=== PATIENT | male | born 1950 | race African-American/Black ===

== ENCOUNTER 2018-11-27 15:37 | Emergency (ER) | payer OTHER ==
[2018-11-27 15:48] VITALS: BP 137/83; PULSE 86; TEMP 98.7; BMI 31.1
--- NOTE | 2018-11-27 15:48 | PDOC ---
Rapid Medical Evaluation Chief Complaint: Pain Time Seen by Provider: 11/27/18 15:46 Medical Evaluation: Allergies Allergy/AdvReac Type Severity Reaction Status Date / Time No Known Allergies Allergy Verified 03/29/16 07:41 11/27/18 15:46 This patient had a brief in-person evaluation by me. cc: left groin pain x 2 days patient reports twisting bad 2 days ago and since then with inner left thigh and groin pain Denies numbness or tingling in leg PE: NAD even unlabored breathing Orders: none This patient will proceed to Ed for further evaluation Discharge Disposition - Diagnosis Groin pain, chronic, left, Groin pain - Referrals - Patient Instructions - Post Discharge Activity
[2018-11-27] MEDS ORDERED: NAPROXEN 500 MG TABLET (FP) PO ONE (16:45)
[2018-11-27] MEDS ORDERED: METHOCARBAMOL 500 MG TABLET PO ONE (16:45)
--- NOTE | 2018-11-27 16:51 | PDOC ---
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 Patient reported taking Tylenol 3 days ago for pain but has not taken anything else. Denies testicular swelling, pain or discharge. Denies hematuria. Denies dysuria. Denies any other symptoms Timing/Duration: other (3 days) Past History - Past Medical History Allergies/Adverse Reactions: Allergies Allergy/AdvReac Type Severity Reaction Status Date / Time No Known Allergies Allergy Verified 11/27/18 15:48 Home Medications: Ambulatory Orders No Home Medications 0 dose .ROUTE UTDICT 03/24/13 Chlordiazepoxide [Librium -] 10 mg PO TID PRN #21 capsule MDD 3 03/29/16 Naproxen 500 mg PO BID PRN #20 tablet 11/27/18 COPD: No HTN: Yes Liver Disease: Yes (HEP C) - Suicide/Smoking/Psychosocial Hx Smoking Status: No Smoking History: Former smoker Have you smoked in the past 12 months: No Number of Cigarettes Smoked Daily: 0 Information on smoking cessation initiated: No Hx Alcohol Use: No Drug/Substance Use Hx: No Review of Systems - Review of Systems Able to Perform ROS?: Yes Is the patient limited Korean proficient: No HEENTM: No: Symptoms Reported Respiratory: No: Symptoms reported Cardiac (ROS): No: Symptoms Reported ABD/GI: No: Nausea, Vomiting : Yes: Symptoms Reported, See HPI, Pain (left groin and inner thigh). No: Dysuria, Discharge, Hematuria, Testicular Mass, Testicular Swelling, Testicular Pain Musculoskeletal: Yes: Symptoms Reported, See HPI, Muscle Pain (left groin) All Other Systems: Reviewed and Negative *Physical Exam - Vital Signs Last Vital Signs Temp Pulse Resp BP Pulse Ox 98.7 F 86 18 137/83 97 11/27/18 15:46 11/27/18 15:46 11/27/18 15:46 11/27/18 15:46 11/27/18 15:46 - Physical Exam General Appearance: Yes: Nourished, Appropriately Dressed. No: Apparent Distress HEENT: positive: Normal ENT Inspection Neck: positive: Supple Respiratory/Chest: negative: Respiratory Distress, Accessory Muscle Use Gastrointestinal/Abdominal: positive: Normal Bowel Sounds. negative: Tender Male Genitalia: positive: normal genitalia, other (mild tenderness to left side of mons pubis and left groin area). negative: testicular tenderness, testicular mass, epididymus tender, inguinal hernia, hernia, CVAT Musculoskeletal: positive: Normal Inspection. 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 Patient reported taking Tylenol 3 days ago for pain but has not taken anything else. Denies testicular swelling, pain or discharge. Denies hematuria. Denies dysuria. Denies any other symptoms Exam significant for mild tenderness to mons pubis and in the left thigh. No testicular pain or swelling. No scrotal swelling. Patient offered to do testicular ultrasound to evaluate pain but patient feels doesn't need ultrasound and will rather try NSAIDs for his pain before coming back for ultrasound if needed. Patient symptoms likely muscle strain. Naproxen 500 mg by mouth and Robaxin 500 mg by mouth ordered for pain. Patient is stable for discharge and naproxen as needed for pain with urology follow-up as needed. *DC/Admit/Observation/Transfer Diagnosis at time of Disposition: Groin pain Qualifiers: Laterality: left Qualified Code(s): R10.32 - Left lower quadrant pain Inguinal muscle strain Qualifiers: Encounter type: initial encounter Qualified Code(s): S39.013A - Strain of muscle, fascia and tendon of pelvis, initial encounter - Discharge Dispostion Disposition: HOME Condition at time of disposition: Stable Decision to Admit order: No - Prescriptions Prescriptions: Naproxen 500 mg PO BID PRN #20 tablet PRN Reason: pain - Referrals Referrals: El-Masry,Matt S, MD [Staff Physician] - - Patient Instructions Printed Discharge Instructions: Groin Strain Additional Instructions: Take prescribed medication as needed for pain. Apply hot compress to groin area 2-3 times a needed for pain. Follow-up with referred urology if no improvement in 2 days - Post Discharge Activity
[2018-11-27] MEDS ORDERED: METHOCARBAMOL 500 MG TABLET ONE (16:55)
[2018-11-27] MEDS ORDERED: NAPROXEN 500 MG TABLET (FP) ONE (16:55)
== END 2018-11-27 17:03 | disposition home or self-care (01) ==
LOC: JERFT 15:37
DX: S39.013A Strain of muscle, fascia and tendon of pelvis, initial encounter (principal); X50.1XXA Overexertion from prolonged static or awkward postures, initial encounter; Y93.89 Activity, other specified; Y92.89 Other specified places as the place of occurrence of the external cause; Y99.8 Other external cause status; I10 Essential (primary) hypertension; B18.2 Chronic viral hepatitis C
CPT/HCPCS: 99281-25

== ENCOUNTER 2019-07-18 07:55 | Emergency (ER) | payer OTHER ==
[2019-07-18 08:01] VITALS: BMI 29.0
--- NOTE | 2019-07-18 08:23 | PDOC ---
History of Present Illness - General Chief Complaint: Psychiatric Stated Complaint: NOT FEELING WELL IN HOSPITAL, FEELING ANXIOUS Time Seen by Provider: 07/18/19 08:04 - History of Present Illness Initial Comments: 07/18/19 08:24 CHIEF COMPLAINT: anxiety HISTORY OF PRESENT ILLNESS: 69 yo M with hx of hepatitis C and cirrhosis presents to ED with anxiety related to his job and his currently being in the ER. Patient reports his was admitted to the hospital for a "diabetic coma" and was going to come see her this afternoon but decided to come early to be evaluated because he has been feeling "jittery" whenever something stressful happens lately. 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 No recent travel or sick contacts. PAST MEDICAL HISTORY: Denies past medical history FAMILY HISTORY: Denies SOCIAL HISTORY: Lives at home with . 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 SURGICAL HISTORY: Denies ALLERGIES: No known drug allergies REVIEW OF SYSTEMS General/Constitutional: Denies fever or chills. Denies weakness, weight change. HEENT: Denies change in vision. Denies ear pain or discharge. Denies sore throat. Cardiovascular: Denies chest pain or shortness of breath. Respiratory: Denies cough, wheezing, or hemoptysis. Gastrointestinal: Denies nausea, vomiting, diarrhea or constipation. Denies rectal bleeding. Genitourinary: Denies dysuria, frequency, or change in urination. Musculoskeletal: Denies joint or muscle swelling or pain. Denies neck or back pain. Skin and breasts: Denies rash or easy bruising. Neurologic: Denies headache, vertigo, loss of consciousness, or loss of sensation. Psychiatric: "I have been feeling jittery whenever something stressful happens lately." Endocrine: Denies increased thirst. Denies abnormal weight change. Hematologic/Lymphatic: Denies anemia, easy bleeding, or history of blood clots. Allergic/Immunologic: Denies hives or skin allergy. Denies latex allergy. PHYSICAL EXAM General Appearance: Well-appearing, appropriately dressed. No apparent distress , no intoxication. HEENT: EOMI, PERRLA, normal ENT inspection, normal voice, TMs normal, pharynx normal. No conjunctival pallor. No photophobia, scleral icterus. Neck: Supple. Trachea midline. No tenderness, rigidity, carotid bruit, stridor , lymphadenopathy, or thyromegaly. Respiratory/Chest: Lungs CTAB. No shortness of breath, chest tenderness, respiratory distress, accessory muscle use. No crackles, rales, rhonchi, stridor , wheezing, dullness Cardiovascular: RRR. S1, S2. No JVD, murmur, bradycardia, tachycardia. Vascular Pulses: Dorsalis-Pedis (R): 2+, Dorsalis-Pedis (L): 2+ Gastrointestinal/Abdominal: Normal bowel sounds. Abdomen soft, non-distended. No tenderness or rebound tenderness. No organomegaly, pulsatile mass, guarding , hernia, hepatomegaly, splenomegaly. Lymphatic: No adenopathy, tenderness. Musculoskeletal/Extremities: Normal inspection. FROM of all extremities, normal capillary refill. Pelvis Stable. No CVA tenderness. No tenderness to extremities, pedal edema, swelling, erythema or deformity. Integumentary: Appropriate color, dry, warm. 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 Fully oriented, alert. Appropriate mood/affect. Motor strength 5/5. No appreciable EOM palsy, facial droop or sensory deficit. 07/18/19 16:39 Past History - Past Medical History Allergies/Adverse Reactions: Allergies Allergy/AdvReac Type Severity Reaction Status Date / Time No Known Allergies Allergy Verified 07/18/19 08:01 Home Medications: Ambulatory Orders Hydroxyzine HCl 25 mg PO TID PRN #20 tablet 07/18/19 COPD: No HTN: Yes Liver Disease: Yes (HEP C) - Psycho Social/Smoking Cessation Hx Smoking Status: No Smoking History: Never smoked Have you smoked in the past 12 months: No Number of Cigarettes Smoked Daily: 0 Information on smoking cessation initiated: No Hx Alcohol Use: Yes (occasional) Drug/Substance Use Hx: No *Physical Exam - Vital Signs Last Vital Signs Temp Pulse Resp BP Pulse Ox 98 F 88 19 101/76 99 07/18/19 07:58 07/18/19 07:58 07/18/19 07:58 07/18/19 07:58 07/18/19 07:58 Medical Decision Making - Medical Decision Making 07/18/19 16:41 69 yo M with hx of hepatitis C and cirrhosis presents to ED with anxiety related to his job and his currently being in the ER. -EKG EKG unremarkable. Discussed in depth with patient how therapy may help with his symptoms. Patient agrees to f/u with psychologist for therapy to help handle his anxiety during times of stress lately. -hydroxyzine prn Discharge - Discharge Information Problems reviewed: Yes Clinical Impression/Diagnosis: Anxiety as acute reaction to exceptional stress Condition: Stable Disposition: HOME - Admission No - Additional Discharge Information Prescriptions: Hydroxyzine HCl 25 mg PO TID PRN #20 tablet PRN Reason: Anxiety - Follow up/Referral Referrals: Jeancarlos Aguilar MD [Primary Care Provider] - Stevie Goldstein PSYD [Psychologist] - - Patient Discharge Instructions Patient Printed Discharge Instructions: DI for Anxiety -- Adult Additional Instructions: Please take medication as needed for your anxiety. Your EKG was completely normal today. As discussed, it is important for you to follow up with a therapist for continued evaluation and monitoring of your anxiety. If you develop any chest pain, shortness of breath, weakness to one side of your body, sudden onset headache, blurry vision, difficulty speaking/swallowing/ walking, or any new or other concerning symptoms, please return to the ER immediately. - Post Discharge Activity
[2019-07-18 09:05] VITALS: BP 104/72; PULSE 83; TEMP 98.2
--- NOTE | 2019-07-18 16:37 | EKG ---
Test Reason : Blood Pressure : / mmHG Vent. Rate : 081 BPM Atrial Rate : 081 BPM P-R Int : 154 ms QRS Dur : 084 ms QT Int : 382 ms P-R-T Axes : 064 042 061 degrees QTc Int : 443 ms NORMAL SINUS RHYTHM NORMAL ECG Confirmed by MD CJ, QUINCY ([id number]) on 07/18/2019 4:37:06 PM Referred By: Confirmed By:QUINCY CORONA MD
== END 2019-07-18 09:00 | disposition home or self-care (01) ==
LOC: JER 07:55
DX: F41.1 Generalized anxiety disorder (principal); F43.0 Acute stress reaction; B19.20 Unspecified viral hepatitis C without hepatic coma; K74.60 Unspecified cirrhosis of liver
CPT/HCPCS: 93005; 93010; 99283-25

== ENCOUNTER 2020-09-04 04:33 | Day surgery (SDC) | payer OTHER ==
[2020-09-03 13:48] VITALS: BMI 31.8
[2020-09-04] MEDS ORDERED: PROPOFOL 20 ML ONE (09:57)
[2020-09-04] MEDS ORDERED: MIDAZOLAM HCL 2 MG/2 ML SINGLE DOSE VIAL ONE (09:57)
[2020-09-04] MEDS ORDERED: ceFAZolin 2 GRAM PREMIX BAG IVPB ONE (10:31)
[2020-09-04] MEDS ORDERED: ceFAZolin SODIUM 1 GM VIAL ONE (10:38)
[2020-09-04] MEDS ORDERED: DEXAMETHASONE SOD PHOSPHATE 4 MG/1 ML VIAL ONE (10:41)
[2020-09-04] MEDS ORDERED: DEXTROSE 5%-0.45% SALINE 1,000 ML IV SCH (12:00)
[2020-09-04 14:53] VITALS: BP 155/87; PULSE 85; TEMP 97.8
== END 2020-09-04 15:02 | disposition home or self-care (01) ==
LOC: JASU-SURG 04:33
PROVIDERS: ATTEND Urology
PROC: 0T5B8ZZ Destruction of Bladder, Via Natural or Artificial Opening Endoscopic (ICD-10-PCS; principal; 2020-09-04 10:30)
DX: C67.9 Malignant neoplasm of bladder, unspecified (principal)
CPT/HCPCS: 88305-TC; 88307-TC; 94760

== ENCOUNTER 2020-10-09 04:44 | Day surgery (SDC) | payer OTHER ==
[2020-10-08 11:46] VITALS: BMI 31.3
[2020-10-09] MEDS ORDERED: PROPOFOL 20 ML ONE (07:16)
[2020-10-09] MEDS ORDERED: SUCCINYLCHOLINE CHLORIDE 200 MG/10 ML SYRINGE ONE (07:17)
[2020-10-09] MEDS ORDERED: MIDAZOLAM HCL 2 MG/2 ML SINGLE DOSE VIAL ONE (07:17)
[2020-10-09] MEDS ORDERED: LIDOCAINE HCL/PF 2% SDV 5ML VIAL ONE (07:46)
[2020-10-09] MEDS ORDERED: ROCURONIUM BROMIDE 50 MG/5 ML SYRINGE ONE (07:47)
[2020-10-09] MEDS ORDERED: ceFAZolin 2 GRAM PREMIX BAG IVPB ONE (07:52)
[2020-10-09] MEDS ORDERED: ceFAZolin SODIUM 1 GM VIAL ONE (07:55)
[2020-10-09] MEDS ORDERED: oxyCODONE HCL 5 MG TABLET PO PRN ×3 (08:03→08:28)
[2020-10-09] MEDS ORDERED: ONDANSETRON 4 MG/2 ML VIAL IVPUSH PRN (08:03)
[2020-10-09] MEDS ORDERED: NEOSTIGMINE METHYLSULFATE 0.5 MG/1 ML - 10 ML MDV ONE (08:13)
[2020-10-09] MEDS ORDERED: GLYCOPYRROLATE 0.2 MG/1 ML VIAL ONE (08:13)
[2020-10-09] MEDS ORDERED: LACTATED RINGERS SOLUTION 1,000 ML IV SCH (08:15)
[2020-10-09] MEDS ORDERED: DEXTROSE 5%-0.45% SALINE 1,000 ML IV SCH (08:30)
[2020-10-09] MEDS ORDERED: RACEPINEPHRINE IH SOL 2.25% 11.25 MG/0.5 ML VIAL NEB ONE (09:00)
[2020-10-09 09:43] LABS: BASO % 0.6 % (0-2.0); EOS % 2.1 % (0-4.5); HEMATOCRIT 28.7 % (35.4-49); HEMOGLOBIN 9.3 GM/dL (11.7-16.9); LYMPH % 25.1 % (8-40); MCH 27.2 pg (25.7-33.7); MCHC 32.5 g/dl (32.0-35.9); MEAN CELL VOLUME 83.8 fl (80-96); MEAN PLT VOLUME 8.2 fl (7.5-11.1); NEUT % 65.2 % (42.8-82.8); PLATELET COUNT 335 K/MM3 (134-434); RBC 3.42 M/mm3 (4.00-5.60); RDW 18.1 % (11.9-15.9); WHITE BLOOD COUNT 10.6 K/mm3 (4.0-10.0)
[2020-10-09 16:59] VITALS: TEMP 98.2
[2020-10-09 17:05] VITALS: BP 140/70; PULSE 78
== END 2020-10-09 15:30 | disposition home or self-care (01) ==
LOC: JASU-SURG 04:44
PROVIDERS: ATTEND Urology
PROC: 0T5B8ZZ Destruction of Bladder, Via Natural or Artificial Opening Endoscopic (ICD-10-PCS; principal; 2020-10-09 07:30)
DX: C67.9 Malignant neoplasm of bladder, unspecified (principal)
CPT/HCPCS: 36415; 36430; 85025; 86850; 86900; 86901; 86922; 88307-TC; 94760; P9058

== ENCOUNTER 2021-03-05 09:30 | Emergency (ER) | payer OTHER ==
[2021-03-05 09:35] VITALS: BMI 31.4
[2021-03-05 09:36] VITALS: TEMP 97.9
[2021-03-05 11:18] LABS: BASO % 0.3 % (0-2.0); EOS % 0.5 % (0-4.5); HEMOGLOBIN 13.9 GM/dL (11.7-16.9); LYMPH % 15.9 % (8-40); MCH 31.1 pg (25.7-33.7); MCHC 34.6 g/dl (32.0-35.9); MEAN CELL VOLUME 89.7 fl (80-96); MEAN PLT VOLUME 8.2 fl (7.5-11.1); MONO % 6.8 % (3.8-10.2); NEUT % 76.5 % (42.8-82.8); PLATELET COUNT 286 10^3/uL (134-434); RBC 4.46 M/mm3 (4.00-5.60); RDW 14.9 % (11.9-15.9); WHITE BLOOD COUNT 10.9 K/mm3 (4.0-10.0)
[2021-03-05 11:32] LABS: CALCIUM 9.3 mg/dL (8.5-10.1); CO2 27 mmol/L (21-32)
[2021-03-05 11:33] LABS: ALBUMIN 3.8 g/dl (3.4-5.0); BLOOD UREA NITROGEN 23.6 mg/dL (7-18)
[2021-03-05 11:35] LABS: GLUCOSE,RANDOM 113 mg/dL (74-106)
[2021-03-05 11:36] LABS: CREATININE 1.1 mg/dL (0.55-1.3); SGOT/AST 22 U/L (15-37); SGPT/ALT 30 U/L (13-61)
[2021-03-05 11:37] LABS: BILIRUBIN,TOTAL 0.7 mg/dL (0.2-1); TOT PROT 10.1 g/dl (6.4-8.2)
[2021-03-05 11:39] LABS: ALK PHOS 101 U/L (45-117)
[2021-03-05 11:42] LABS: ANION GAP 11 MMOL/L (8-16); CHLORIDE 94 mmol/L (98-107); SODIUM 132 mmol/L (136-145)
[2021-03-05] MEDS ORDERED: SODIUM CHLORIDE 0.9% 500 ML INFUS.BAG IV ONE (14:20)
[2021-03-05] MEDS ORDERED: KETOROLAC TROMETHAMINE 30 MG/1 ML VIAL IVPUSH ONE (14:20)
[2021-03-05] MEDS ORDERED: KETOROLAC TROMETHAMINE 30 MG/1 ML VIAL ONE (14:30)
[2021-03-05 16:00] VITALS: BP 132/79; PULSE 87
== END 2021-03-05 16:00 | disposition home or self-care (01) ==
LOC: JER 09:30
PROC: 3E0333Z Introduction of Anti-inflammatory into Peripheral Vein, Percutaneous Approach (ICD-10-PCS; principal; 2021-03-05)
DX: M25.60 Stiffness of unspecified joint, not elsewhere classified (principal)
CPT/HCPCS: 36415; 71046-TC-FY; 80053; 82553; 85025; 93970-TC; 99284-25

== ENCOUNTER 2021-09-03 04:26 | Day surgery (SDC) | payer OTHER ==
[2021-09-03 08:57] VITALS: TEMP 97.9
[2021-09-03 09:26] VITALS: PULSE 76
[2021-09-03 09:28] VITALS: BP 140/71
== END 2021-09-03 09:49 | disposition home or self-care (01) ==
LOC: JASU-ENDO 04:26
PROVIDERS: ATTEND Internal Medicine Gastroenterology
PROC: 0DJD8ZZ Inspection of Lower Intestinal Tract, Via Natural or Artificial Opening Endoscopic (ICD-10-PCS; principal; 2021-09-03 08:30)
DX: Z12.11 Encounter for screening for malignant neoplasm of colon (principal)

== ENCOUNTER 2022-01-17 08:26 | Emergency (ER) | payer OTHER ==
[2022-01-17 08:39] VITALS: BP 126/78; PULSE 76; RESP 18; TEMP 97.8; BMI 31.1
== END 2022-01-17 11:51 | disposition home or self-care (01) ==
LOC: JERFT 08:26 → JER 08:26 → JERFT 11:51
DX: M25.512 Pain in left shoulder (principal)
CPT/HCPCS: 73030-TC-LT-FY; 99283-25